=== PATIENT | male | born 1960 | race Caucasian/White ===

== ENCOUNTER 2018-10-26 11:34 | Day surgery (SDC) | payer MEDICAID ==
[2018-10-19 12:26] LABS: BASOPHILS % (AUTO) 0.8 % (0-1); EOSINOPHILS # (AUTO) 0.1 X10'3 (0-0.9); EOSINOPHILS % (AUTO) 1.2 % (0-6); LYMPHOCYTES # (AUTO) 0.9 X10'3 (1.1-4.8); LYMPHOCYTES % (AUTO) 16.5 % (21-51); MEAN CORPUSCULAR HEMOGLOBIN 29.6 PG (27.0-31.0); MEAN CORPUSCULAR HGB CONC 33.4 g/dL (33.0-36.5); MEAN CORPUSCULAR VOLUME 88.6 FL (78-98); MEAN PLATELET VOLUME 8.8 FL (7.4-10.4); MONOCYTES # (AUTO) 0.6 X10'3 (0-0.9); MONOCYTES % (AUTO) 11.4 % (2-12); NEUTROPHILS # (AUTO) 3.7 X10'3 (1.8-7.7); NEUTROPHILS % (AUTO) 70.1 % (42-75); PRE OP HEMATOCRIT 48.9 % (42.0-52.0); PRE OP HEMOGLOBIN 16.3 g/dL (14.0-17.9); PRE OP PLATELET COUNT 218 X10'3 (140-440); RED BLOOD COUNT 5.51 X10'6 (4.70-6.10); RED CELL DISTRIBUTION WIDTH 13.9 % (11.5-14.5)
[2018-10-19 12:41] LABS: ALBUMIN 3.8 G/DL (3.4-5.0); ALBUMIN/GLOBULIN RATIO 1.1 (1.1-1.5); ALKALINE PHOSPHATASE 63 IU/L (46-116); BLOOD UREA NITROGEN 29 MG/DL (7-18); BUN/CREATININE RATIO 21.2 (5.4-32.0); CALCIUM 9.3 MG/DL (8.5-10.1); CHLORIDE 104 MMOL/L (99-107); CREATININE 1.37 MG/DL (0.60-1.10); PARTIAL THROMBOPLASTIN TIME 28 SECONDS (22-32); PRE OP ALT 31 U/L (30-65); PRE OP ANION GAP 2 (8-16); PRE OP AST 18 U/L (10-37); PRE OP BILIRUB, TOTAL 0.5 MG/DL (0.0-1.0); PRE OP GLUCOSE 75 MG/DL (70-104); PRE OP POTASSIUM 4.6 MMOL/L (3.4-5.1); PRE OP SODIUM 138 MMOL/L (135-145); TOTAL CARBON DIOXIDE 32.3 MMOL/L (24-32); TOTAL PROTEIN 7.2 G/DL (6.4-8.2); eGFR 54 ML/MIN
[~2018-10-26] VITALS: Ht 203.2 cm; Wt 101.2 kg
[2018-10-26] VITALS (11 sets, daily range): BP systolic 107–148; BP diastolic 57–85
[~2018-10-26 11:34] MED LIST: CANNIBUS INH; HYDR-4353 PO; LACT1CAP73 PO; METH-360 PO; MULT-933 PO; PENI-88 PO; TRAZ-251 PO; famotidine 20mg tablet PO ONE; ringers solution, lacted 1,000 ML IV SCH; vancomycin inj 1,500 MG in normal saline 300ml IV soln IV ONE
[2018-10-26] MEDS ORDERED: LIDOcaine 1% (10mg/ml) 2ml vial ONE (11:49)
[2018-10-26] MEDS ORDERED: LIDOcaine 1% 30ml preserv. free vial ONE (12:32)
[2018-10-26] MEDS ORDERED: gentamicin 40 MG/1 ML inj ONE (12:32)
[2018-10-26] MEDS ORDERED: ceFAZolin 1000mg inj ONE (12:32)
[2018-10-26] MEDS ORDERED: morphine 2 MG/ML inj. syringe IV ONE (12:55)
[2018-10-26] MEDS ORDERED: morphine 4 MG/ML inj SYRINge IV ONE (13:00)
--- NOTE | 2018-10-26 13:07 | NUR ---
MEDICATED FOR NECK/BACK PAIN PER ORDERS. REASSURED. S.O. @ BEDSIDE.
[2018-10-26] MEDS ORDERED: fentaNYL/PF 50MCG/1 ML 2ML syringe ONE (13:37)
[2018-10-26] MEDS ORDERED: midazolam 2 mg/2 ml injection ONE (13:38)
[2018-10-26] MEDS ORDERED: propofol inj 20 ML IV ONE (13:38)
[2018-10-26] MEDS ORDERED: ringers solution, lacted 1,000 ML IV SCH (14:22)
[2018-10-26] MEDS ORDERED: ondansetron/PF 4mg/2ml inj IV PRN (14:25)
[2018-10-26] MEDS ORDERED: proCHLORperazine 10 MG/2 ml inj IV PRN (14:25)
[2018-10-26] MEDS ORDERED: meperidine/PF 25mg/ml syringe IV PRN ×3 (14:25)
[2018-10-26] MEDS ORDERED: morphine 4 MG/ML inj SYRINge IV PRN ×2 (14:25)
--- NOTE | 2018-10-26 15:05 | NUR ---
Received from OR via bed, accompanied by Anesthesiologist. Report received. Initial physical assessment done and recorded.
[2018-10-26] MEDS ORDERED: oxyCODONE/APAP 10/325mg tablet PO ONE (16:15)
--- NOTE | 2018-10-26 16:30 | NUR ---
Discharge criteria met, discharge instructions given, demonstrates verbal understanding. Discharged home in good condition. Given pain med prior to discharge. Void x1`
== END 2018-10-26 16:30 | disposition home or self-care (01) ==
LOC: PAS 11:34
PROVIDERS: ATTEND Specialist
DX: Z45.010 Encounter for checking and testing of cardiac pacemaker pulse generator [battery] (principal); I49.5 Sick sinus syndrome; I10 Essential (primary) hypertension; I27.20 Pulmonary hypertension, unspecified
CPT/HCPCS: 33228; 36415; 71046; 80053; 82948; 85025; 85610; 85730; 93005; A6257; C1785; J0690; J1580; J2001; J2175; J2250; J2270; J2405; J2704; J3010; J3370; A6449; A7000; J7120

== ENCOUNTER 2018-10-28 08:29 | Day surgery (SDC) | payer MEDICAID ==
[~2018-10-28] VITALS: Ht 203.2 cm; Wt 100.0 kg
[~2018-10-28 08:29] MED LIST changes: +LIDOcaine 1% 30ml preserv. free vial ONE; -famotidine 20mg tablet PO ONE; +morphine 2 MG/ML inj. syringe IV ONE; -ringers solution, lacted 1,000 ML IV SCH; +vancomycin 1,000mg inj ONE; -vancomycin inj 1,500 MG in normal saline 300ml IV soln IV ONE
[2018-10-28 08:54] VITALS: BP 131/65
[2018-10-28] MEDS ORDERED: pneumococcal 23-VAL P-sac vacc 25 mcg/0.5ml vial IMVAC ONE (09:25)
[2018-10-28] MEDS ORDERED: MAGN400C PO (09:31)
== END 2018-10-28 10:35 | disposition home or self-care (01) ==
LOC: SSTAY O 08:29
PROVIDERS: ATTEND Radiology Diagnostic Radiology
DX: R59.9 Enlarged lymph nodes, unspecified (principal); Z53.8 Procedure and treatment not carried out for other reasons
CPT/HCPCS: J2001; J3370; 38505

== ENCOUNTER 2019-07-27 06:15 | Day surgery (SDC) | payer MEDICAID ==
--- NOTE | 2019-07-26 08:31 | NUR ---
Spoke with patient re preop instructions. Pt states he has poison oak on hands and feet. Dr Veloz is aware. says if it is dry then we will proceed with surgery. If it is wet, we will wait for a week. Pt states it is dry and going away. Plan to proceed with surgery tomorrow.
[~2019-07-27] VITALS: Ht 203.2 cm; Wt 99.4 kg
[~2019-07-27 06:15] MED LIST changes: +ACET-1025 PO; +CANNABIS INH; -CANNIBUS INH; -HYDR-4353 PO; -LACT1CAP73 PO; -LIDOcaine 1% 30ml preserv. free vial ONE; +MAGN400C PO; -METH-360 PO; +OXYC10TA47 PO; -PENI-88 PO; +SILD100T PO; +cefazolin/dext.iso 2gm/100ml 100 ML IV ONE; +famotidine 20mg tablet PO ONE; -morphine 2 MG/ML inj. syringe IV ONE; +ringers solution, lacted 1,000 ML IV SCH; -vancomycin 1,000mg inj ONE
[2019-07-27] MEDS ORDERED: LIDOcaine 1% (10mg/ml) 2ml vial ONE (06:32)
[2019-07-27 07:28] LABS: BASOPHILS % (AUTO) 0.8 % (0-1); EOSINOPHILS # (AUTO) 0.2 X10'3 (0-0.9); EOSINOPHILS % (AUTO) 3.9 % (0-6); LYMPHOCYTES # (AUTO) 1.1 X10'3 (1.1-4.8); MEAN CORPUSCULAR HEMOGLOBIN 29.4 PG (27.0-31.0); MEAN CORPUSCULAR HGB CONC 32.9 g/dL (33.0-36.5); MEAN CORPUSCULAR VOLUME 89.5 FL (78-98); MEAN PLATELET VOLUME 8.5 FL (7.4-10.4); MONOCYTES # (AUTO) 0.5 X10'3 (0-0.9); MONOCYTES % (AUTO) 9.9 % (2-12); NEUTROPHILS # (AUTO) 3.1 X10'3 (1.8-7.7); NEUTROPHILS % (AUTO) 62.4 % (42-75); PRE OP HEMATOCRIT 40.8 % (42.0-52.0); PRE OP HEMOGLOBIN 13.4 g/dL (14.0-17.9); PRE OP PLATELET COUNT 217 X10'3 (140-440); RED BLOOD COUNT 4.56 X10'6 (4.70-6.10); RED CELL DISTRIBUTION WIDTH 13.8 % (11.5-14.5)
[2019-07-27 07:46] LABS: ALBUMIN 3.8 G/DL (3.4-5.0); ALBUMIN/GLOBULIN RATIO 1.2 (1.1-1.5); ALKALINE PHOSPHATASE 102 IU/L (46-116); BLOOD UREA NITROGEN 22 MG/DL (7-18); BUN/CREATININE RATIO 19.3 (5.4-32.0); CALCIUM 9.1 MG/DL (8.5-10.1); CHLORIDE 107 MMOL/L (99-107); CREATININE 1.14 MG/DL (0.60-1.10); PRE OP ALT 42 U/L (30-65); PRE OP ANION GAP 4 (8-16); PRE OP AST 21 U/L (10-37); PRE OP BILIRUB, TOTAL 0.3 MG/DL (0.0-1.0); PRE OP GLUCOSE 94 MG/DL (70-104); PRE OP POTASSIUM 4.3 MMOL/L (3.4-5.1); PRE OP SODIUM 141 MMOL/L (135-145); TOTAL PROTEIN 6.9 G/DL (6.4-8.2); eGFR 66 ML/MIN
[2019-07-27 07:47] VITALS: BP 127/80
[2019-07-27] MEDS ORDERED: LIDOcaine 1% 30ml preserv. free vial ONE (07:47)
[2019-07-27] MEDS ORDERED: ceFAZolin 1000mg inj ONE (07:47)
[2019-07-27] MEDS ORDERED: heparin sodium, porcine/PF 100unit/ml 5ML syringe ONE (07:49)
[2019-07-27 07:50] VITALS: BP 127/80
[2019-07-27] MEDS ORDERED: MIDAZolam 5mg/5ml vial ONE (08:32)
[2019-07-27] MEDS ORDERED: fentaNYL/PF 50MCG/1 ML 2ML syringe ONE (08:32)
[2019-07-27] MEDS ORDERED: propofol inj 20 ML IV ONE (09:25)
[2019-07-27 09:39] VITALS: BP 143/93
--- NOTE | 2019-07-27 09:39 | NUR ---
Received from OR via [facility] , accompanied by Anesthesiologist GIDEON and report given by Anesthesiolgist. PATIENT WITH ANTERIOR LEFT SHOULDER OP SITE DRESSING THAT IS CDI. VSS,COMPLAINS OF A HEADACHE. MD AWARE. PATIENT WITH 20G PIV IN LEFT UE RUNNING LR AT 100. Addendum: 07/27/19 at 0950 by Enrique Morales RN, RN Amended: Links added.
[2019-07-27] MEDS ORDERED: ringers solution, lacted 1,000 ML IV SCH (09:44)
[2019-07-27] MEDS ORDERED: proCHLORperazine 10 MG/2 ml inj IV PRN (09:45)
[2019-07-27] MEDS ORDERED: ondansetron/PF 4mg/2ml inj IV PRN (09:45)
[2019-07-27] MEDS ORDERED: morphine 2 MG/ML inj. syringe IV PRN (09:45)
[2019-07-27] MEDS ORDERED: morphine 4 MG/ML inj SYRINge IV PRN (09:45)
[2019-07-27] MEDS ORDERED: meperidine/PF 25mg/ml syringe IV PRN ×3 (09:45)
[2019-07-27 09:49] VITALS: BP 132/75
[2019-07-27 09:59] VITALS: BP 139/88
--- NOTE | 2019-07-27 10:09 | NUR ---
ALL DC CRITERIA HAS BEEN MET. IV TAKEN OUT WITHOUT COMPLICATIONS. ALL INSTRUCTIONS COVERED AND ALL QUESTIONS ANSWERED. DRESSINGS CDI. OUT VIA WHEELCHAIR TO PERSONAL VEHICLE WHERE PATIENT WAS SECURED IN AND DRIVEN HOME BY FAMILY. VOIDED, AMBULATED, NO C.O. PAIN, VSS. FRIEND PULLED UP AND PICKED UP PATIENT. Addendum: 07/27/19 at 1030 by Enrique Morales RN, RN Amended: Links added.
== END 2019-07-27 10:09 | disposition home or self-care (01) ==
LOC: PAS 06:15
PROVIDERS: ATTEND Surgery
DX: C01 Malignant neoplasm of base of tongue (principal); I10 Essential (primary) hypertension; Z95.0 Presence of cardiac pacemaker; Z85.46 Personal history of malignant neoplasm of prostate; Z87.442 Personal history of urinary calculi; Z79.899 Other long term (current) drug therapy
CPT/HCPCS: 36415; 36561; 71045; 77001; 80053; 85025; 93005; A6402; C1788; J0690; J1642; J2001; J2175; J2250; J2704; J3010; J7120; 76000; A4215; A4618; A6449; A7000